=== PATIENT | male | born 1935 | race Caucasian/White ===

== ENCOUNTER 2017-05-28 15:28 | Inpatient (IN) | payer MEDICARE, BC ==
[~2017-05-28] VITALS: Ht 182.9 cm; Wt 91.2 kg
--- NOTE | ~2017-05-28 | CR63 ---
[facility] A Service of [facility] RADIOLOGY TEXT RESULTS PATIENT: TIEN SHELLEY LOCATION: [facility] - : 33 UNIT #: [id number] AGE: [address]: Real Dias MD SEX: M ORDER DR: [id number] [facility] [address]. [place], [place] [address] [id number] I MR#: [id number] Acc #: [id number] NAME: TIEN SHELLEY. : 1935 SEX: M STUDY DATE/TIME: 05/28/2017 17:32 UNIT: [address] ROOM: [facility] STUDY DESCRIPTION: CR Chest 2 View Attending Physician: Real Dias M.D. Ordering Physician: Cecy Rivas M.D. Primary Care Physician: Luis M Mederos M.D. MEDICAL IMAGING REPORT This report is preliminary unless electronic signature is present EXAM 2-view chest 05/28/2017 HISTORY 81-year-old male with shortness of air for 2 days. COMPARISON Chest 05/28/2017 FINDINGS 2 views of the chest again demonstrates right basilar atelectasis/infiltrate. Early pneumonia not excluded. No pneumothorax. Heart size and mediastinum are normal. Pulmonary vasculature normal. Small right pleural effusion is also not excluded. IMPRESSION Persistent right basilar atelectasis/infiltrate and questionable small right pleural effusion, unchanged from examination performed earlier the same date. Early pneumonia is not excluded. Dictated by... Michel Camacho M.D. THIS IS AN ELECTRONICALLY VERIFIED REPORT Michel Camacho M.D. at 05/29/2017 3:13 PM AXEL/gold TD: 05/29/2017 07:46 JOB #: [id number] MEDICAL IMAGING REPORT Page 1 of 1 COPY
--- NOTE | ~2017-05-28 | CT57 ---
[facility] A Service of [facility] RADIOLOGY TEXT RESULTS PATIENT: TIEN SHELLEY LOCATION: [facility] 338- : 33 UNIT #: [id number] AGE: [address]: Real Dias MD SEX: M ORDER DR: [id number] [facility] [address] [facility]. [place], [place] [address] [id number] I MR#: [id number] Acc #: [id number] NAME: TIEN SHELLEY. : 1935 SEX: M STUDY DATE/TIME: 05/29/2017 17:44 UNIT: [address] ROOM: [facility] STUDY DESCRIPTION: CT Chest Wo Cont Attending Physician: Real Dias M.D. Ordering Physician: Real Dias M.D. Primary Care Physician: Luis M Mederos M.D. MEDICAL IMAGING REPORT This report is preliminary unless electronic signature is present EXAM CT chest without contrast 05/29/2017 HISTORY 81-year-old male with shortness of air and cough beginning 05/28/2017. COMPARISON Chest x-ray 05/28/2017. TECHNIQUE Helical scan performed through the chest without IV contrast. Coronal and sagittal reformatted images. This CT examination was performed with one or more of the following radiation dose reduction techniques: automatic exposure control, adjustment of mA and/or kV according to patient size, and iterative reconstruction. FINDINGS Thoracic aorta normal in course and caliber. Heart size normal. No pericardial effusion. Coronary artery calcifications. Dense calcifications of the mitral annulus. Scattered atherosclerotic calcification throughout the thoracic aorta. There is a small right pleural effusion with dense right basilar infiltrate. The left lung is clear. No pneumothorax. Emphysema. Scanning through the upper abdomen demonstrates a TIPS stent. Cirrhotic morphology of the liver. Punctate left intrarenal calcifications. No acute bony abnormality. There is a left renal cyst. IMPRESSION 1. Small right pleural effusion with dense right basilar infiltrate. 2. Emphysema. 3. Cirrhotic morphology of the liver with TIPS. [facility] A Service of [facility] RADIOLOGY TEXT RESULTS PATIENT: TIEN SHELLEY LOCATION: [facility] 338-01 : 33 UNIT #: [id number] AGE: [address]: Real Dias MD SEX: M ORDER DR: Dictated by... Michel Camacho M.D. THIS IS AN ELECTRONICALLY VERIFIED REPORT Michel Camacho M.D. at 05/30/2017 4:08 PM AXEL/magda TD: 05/30/2017 10:01 JOB #: [id number] MEDICAL IMAGING REPORT Page 1 of 1 COPY
--- NOTE | ~2017-05-28 | ST ---
Unit #: [id number] #: [id number] Patient: TIEN SHELLEY [id number] [address] [address] [id number] I MR#: [id number] NAME: TIEN SHELLEY. : 1935 SEX: M STUDY DATE/TIME: UNIT: C3A PCU ROOM: [address] [place] [address] DESCRIPTION: Stress Test Attending Physician: Real Dias M.D. Primary Care Physician: Luis M Mederos M.D. CARDIOLOGY REPORT EXAM Lexiscan Cardiolite Stress Test DESCRIPTION Baseline EKG - normal sinus rhythm with ventricular rate 86 beats per minute, slow R wave progression, borderline left ventricular hypertrophy. Lexiscan is a four minute test with Lexiscan being injected within the first minute followed by Cardiolite. After Lexiscan injected, patient had frequent premature ventricular complexes during the stress portion and they resolved in recovery phase. EKG during the test did not show any acute ischemic changes, nonspecific changes. Maximum heart rate response was 107 beats per minute with a maximum blood pressure response of 177/81 mmHg. Patient had no complaints of chest pain, palpitations or dizziness. Had increased shortness of breath and fatigueness which resolved in recovery phase. Cardiolite was injected after Lexiscan within the first minute of the test. Radionuclide test pending. Please correlate with nuclear images. Dictated by... Tonie Mendenhall A.P.R.N. for Carolyne Johnson/ogld TD: 05/30/2017 12:55 JOB #: [id number] Unit #: [id number] #: [id number] Patient: TIEN SHELLEY CARDIOLOGY REPORT Page 1 of 1 X Tonie Mendenhall APRN CARDIOLOGY REPORT
--- NOTE | ~2017-05-28 | DS ---
Unit #: [id number] #: [id number] Patient: TIEN SHELLEY [id number] [facility] [address] [facility] [place] [facility]. [place], [place] [address] [id number] I MR#: [id number] NAME: TIEN SHELLEY. ROOM: 338 Age: 81 Sex: M Admission Date: 05/29/2017 : 1935 Discharge Date: 05/31/2017 Attending Physician: Real Dias M.D. Primary Care Physician: Luis M Mederos M.D. DISCHARGE SUMMARY REASON FOR ADMISSION Cough. HISTORY OF PRESENT ILLNESS/HOSPITAL COURSE The patient is a very pleasant 81-year-old male with longstanding history of cirrhosis, hepatic encephalopathy, portal vein thrombosis with prior history of TIPS procedure, who had actually presented to his primary care physician's office with a productive cough as well as dyspnea over the past several days. While evaluated, he was noted to have abnormal laboratory studies and so subsequently was transferred to [facility] for evaluation. Initial chest x-ray performed in the emergency room showed right lower lobe atelectasis versus infiltrate concerning for pneumonia. Subsequently, the patient was admitted for the same. He underwent routine laboratory studies in regard to pneumonia including blood cultures, which did not show any acute growth. He ultimately underwent a CT chest noncontrast secondary to ambiguity/ambivalent results within the chest x-ray, and therefore, CT noncontrast showed small right pleural effusion with dense right basilar infiltrate, emphysema, as well as cirrhotic morphology of the liver was noted. He was appropriately treated with IV antibiotics while here. Secondary to the location of right lower lobe pneumonia, a strong concern was made for possible aspiration. Speech Therapy Services were consulted. The patient was deemed appropriate and safe to swallow. Part of his routine laboratory studies did yield mildly elevated troponin 0.07, recheck was the same. This subsequently prompted a consultation to Cardiology Services. The patient ultimately underwent on May 30 a Lexiscan Cardiolite stress test, which did show suspicion for stress induced ischemia involving the inferior wall of the left ventricle. Dr. Hameed saw, evaluated, and discussed the results with the patient. Medical management was advised and follow up as an outpatient with her was advised for consideration for possible outpatient cardiac catheterization. The patient did express understanding as well as his . At this point in time, he will be given a prescription for p.o. antibiotics in regard to his pneumonia. He will require a repeat chest x-ray and/or CT noncontrast chest in approximately 4 to 6 weeks to ensure resolution. He will be maintained on his routine medications for aforementioned past medical history. He will also follow up with Unit #: [id number] #: [id number] Patient: KARSTENTIEN of Cardiology Services for discussion and/or review for possible outpatient cardiac catheterization. Appointment has been made for July 15 at 02:30 p.m. FINAL DISCHARGE DIAGNOSES 1. Right lower lobe pneumonia, community acquired. 2. Abnormal Lexiscan Cardiolite with inferior wall ischemia noted. 3. Dyspnea, likely multifactorial. 4. Cirrhosis. 5. Portal vein thrombosis history. 6. Prior history of TIPS procedure. 7. Hypertension. 8. Diabetes with insulin dependence. Hemoglobin A1c in this hospital admission is 7.5%. 9. Prior history of hepatic encephalopathy. Baseline pneumonia appears to be between 50-70. 10. Prior history of duodenal ulcer. 11. Hyperlipidemia history. 12. Prior history of peptic ulcer disease. DISCHARGE MEDICATIONS 1. Lactulose 60 mL p.o. q.8. 2. Tylenol 650 mg p.o. q.6 p.r.n. 3. Xifaxan 550 mg p.o. b.i.d. 4. Coumadin 2 mg p.o. daily. 5. Lopressor 25 mg p.o. b.i.d. 6. Lantus 20 units subcu at bedtime. 7. Lantus 25 units subcu q.a.m. 8. Protonix 40 mg p.o. daily. 9. Amaryl 2 mg p.o. b.i.d. with breakfast and dinner. 10. Augmentin 875 mg p.o. b.i.d. x10 days. 11. Lipitor 20 mg p.o. daily. DISCHARGE DISPOSITION Home. FOLLOWUP PCP in 7 to 10 days to coordinate discharge radiological evaluation and/or followup appointments. Dictated by... Carolyne Ocampo/wesley TD: 06/03/2017 06:11 JOB #: [id number] Unit #: [id number] #: [id number] Patient: TIEN SHELLEY E DISCHARGE SUMMARY Page 1 of 1 X Real Dias MD X DISCHARGE SUMMARY
--- NOTE | ~2017-05-28 | EKG ---
PATIENT: TIEN SHELLEY UNIT #: [id number] Ventricular Rate: 85 BPM Atrial Rate: 85 BPM P-R Interval: 190 ms QRS Duration: 86 ms Q-T Interval: 376 ms QTC Calculation(Bezet): 447 ms P Pettigrew: 43 degrees Calculated R Pettigrew: 20 degrees Calculated T Pettigrew: 80 degrees Diagnosis Line: Sinus rhythm with Premature atrial complexes Diagnosis Line: Otherwise normal ECG Diagnosis Line: When compared with ECG of 07-JUL-2014 11:06, Diagnosis Line: No significant change was found Diagnosis Line: Confirmed by MILKA DIAZ MD ([id number]) on 06/05/2017 Diagnosis Line: 7:29:30 AM INTERPRETING MD: JOE EVANS
--- NOTE | ~2017-05-28 | CO ---
Unit #: [id number] #: [id number] Patient: TIEN BERMEO [id number] [address] [place], [place] [address] [id number] I MR#: [id number] NAME: TIEN BERMEO. ROOM: 338 Age: 81 Sex: M Admission Date: 05/29/2017 : 1935 Attending Physician: Real Dias M.D. Primary Care Physician: Luis M Mederos M.D. Consultation Date: 05/30/2017 CONSULTATION REPORT REASON FOR CONSULTATION Mildly elevated troponin. HISTORY OF PRESENT ILLNESS This is an 81-year-old white male, who has known history of having portal vein thrombosis, he is on Coumadin; recurrent hepatic encephalopathy; and history of nonalcoholic cirrhosis; and also stage 3 to 4 chronic kidney disease; diabetes; hypertension; probable COPD; peptic ulcer disease in the past, who was sent to the emergency room by Dr. Mederos for worsening cough and some shortness of breath and he is not wheezy. On interview with the patient, he denies any chest pain; pain in his neck, bilateral jaws, shoulders, arms, or elbow. He denies any palpitations. No dizziness, presyncope, or syncope. He said the cough is persisting and worsening and he feels more short of breath with exertion. He denies any fever or chills. In the emergency room, the patient's blood pressure was 148/60, heart rate 98, respirations 20, temperature 98, O2 saturations 96% on room air. The patient's initial lactic acid was 3.0. The patient's chest x-ray showed a persistent right basilar atelectasis/infiltrate, and questionable small right pleural effusion, early pneumonia. EKG showed a normal sinus rhythm with occasional premature atrial complex. Nothing acute. His initial cardiac enzymes; CK total was 322, troponin 0.07, CK total is 440, percentage of MB is 2.8, troponin 0.07. BNP on admission was 783. WBC is 14.4 with a hemoglobin of 8, hematocrit 25.5, and platelets is 270. The patient was initiated on the sepsis protocol, because of his increased lactic acid. He was given IV Solu-Medrol along with started on IV antibiotics after cultures. He was started on IV fluids per protocol. Cardiology has been asked to see the patient, because of his mildly elevated troponin and BNP. PAST MEDICAL HISTORY 1. In 2006, had a cardiac cath by Dr. Weber, showed nonobstructive coronary artery disease, had less than 25% stenosis in the diagonal of the LAD. 2. In 2013, had a 24-hour Holter that showed frequent PVCs. No SVT or ventricular tachycardia or pauses. 3. On 05/29/2017, 2D echo shows LVEF of 55% to 60%, and was technically limited. Could not comment very well on the wall motion or valves. Moderately dilated right ventricle, questionable small pericardial effusion, mild tricuspid regurgitation. 4. History of portal vein thrombosis, on Coumadin. Recurrent hepatic Unit #: [id number] #: [id number] Patient: TIEN BERMEO. 5. Peptic ulcer disease, history of duodenal ulcer. Last EGD was 04/11/2015. 6. Diabetes mellitus, type 2. 7. Hyperlipidemia. 8. History of cirrhosis, nonalcoholic steatohepatitis. 9. Chronic kidney disease, stage 3 to 4. 10. Probable COPD. 11. Active nicotine abuse. PAST SURGICAL HISTORY 1. Appendectomy. 2. Right lower lobe lobectomy for pneumonia. 3. Bilateral cataract surgery. 4. Hepatic shunt in 02/2013. 5. Hepatic stent in 02/2014. HOME MEDICATIONS Xifaxan 550 mg p.o. b.i.d., Coumadin 2 mg p.o. daily, Protonix 40 mg p.o. daily, lactulose 60 mL p.o. t.i.d.; Amaryl 2 mg p.o. b.i.d. takes one and a half tablets b.i.d., a total of 3 mg; Lantus 25 units subcu every morning, Lantus 21 units at bedtime. ALLERGIES Honey bee stings and codeine. SOCIAL HISTORY The patient lives with his spouse. He continues to smoke couple of cigarettes a day he states. He denies any alcohol or illicit drug abuse. He ambulates with a cane. FAMILY HISTORY Noncontributory. REVIEW OF SYSTEMS See details in HPI. PHYSICAL EXAMINATION GENERAL: Mr. Bermeo is an 81-year-old white male, in no acute respiratory distress. He is awake, alert, answers most questions appropriately. VITAL SIGNS: Blood pressure is 176/70, respirations 18, heart rate is 88, temperature is 97.9, O2 saturations 97% on room air. NECK: Trachea midline. No thyromegaly or lymphadenopathy. Normal carotid upstrokes. No jugular venous distention. HEART: S1, S2. Regular rate and rhythm. Soft systolic murmur over left sternal border. LUNGS: Diminished with some scattered rhonchi especially in the right. ABDOMEN: Soft and nontender. EXTREMITIES: Pedal pulses are palpable. No pedal edema. DIAGNOSTIC DATA LABORATORY RESULTS: Glucose is 61, BUN 61, creatinine 2.8, eGFR is 28.3, sodium 141, potassium 4.8, chloride 107, CO2 of 22, calcium is 8.5. BNP 783. Lactic acid on admission was 3.0 and later 2.7. Cardiac enzymes; CK total is 322, MB is 8.5, percentage of MB is 2.6, troponin 0.07, CK total is 440, MB is 12.4, percentage of MB 2.8, troponin 0.08. Pro-time is 26.6 with INR of 2.4. WBCs today is up to 17.2, hemoglobin down to 7.5, Unit #: [id number] #: [id number] Patient: TIEN BERMEO hematocrit 24.4, and platelets is 301. On admission, the patient's hemoglobin was 8.0. IMAGING STUDIES: Chest x-ray shows persistent right basilar atelectasis/ infiltrate, and questionable small right pleural effusion, early pneumonia is not excluded. A CT of the chest without contrast shows small right pleural effusion with dense right bibasilar infiltrate, emphysema. Cirrhotic morphology of the liver shows the left lung is clear. CARDIOVASCULAR STUDIES: EKG shows normal sinus rhythm with ventricular rate of 86 beats per minute, slow R-wave progression, borderline left ventricular hypertrophy. IMPRESSION 1. Dyspnea, right lower lobe pneumonia. 2. Right pleural effusion. 3. Mildly elevated troponin 0.07, acute kidney injury. 4. Anemia. 5. History of cirrhosis, nonalcoholic steatohepatitis. 6. History of portal vein thrombosis, on anticoagulation with Coumadin, and recurrent hepatic encephalopathy. 7. A 2D echo on 05/29/2017 shows LVEF of 55% to 60%, but technically limited. Questionable small pericardial effusion. 8. In 2006, nonobstructive CAD. 9. Chronic obstructive pulmonary disease. 10. Active nicotine abuse. PLAN 1. Cardiology consult to assist with evaluation management. 2. The patient's troponin is 0.07, that is not indicative of acute coronary syndrome. However, with patient's multiple medical issues and since 2006 says he has had ischemic heart disease workup, we will order a stress test to further evaluate. The patient verbalizes understanding and agrees to proceed. 3. The patient's blood pressure is fluctuating and is high at times. We will add metoprolol 25 mg p.o. b.i.d. with parameters and make final recommendations on his medication for better blood pressure control. 4. On exam, there are no signs or symptoms of acute congestive heart failure, even though his BNP is high. 5. The patient is on sepsis protocol because on admission, his lactic acid was 3. 6. The patient is being treated with his pneumonia with IV antibiotics. Cultures are pending. 7. The patient will be scheduled for Lexiscan Cardiolite stress test to further evaluate for ischemic heart disease. 8. Encourage the patient to completely quit smoking. Smoking cessation information provided to the patient. 9. Questionable etiology of his anemia likely secondary to his chronic kidney disease. 10. CT of his chest indicates that there is no heart failure. Likely, the BNP in the dyspnea is from his pneumonia and exacerbation of COPD. 11. Further recommendations pending per Dr. Hameed. Thank you very much for allowing us to assist in the care. Unit #: [id number] #: [id number] Patient: TIEN BERMEO Dictated by... Francia Nicole/wesley TD: 05/31/2017 11:45 JOB #: [id number] CONSULTATION REPORT Page 1 of 1 X Tonie Mendenhall APRN X CONSULTATION REPORT
--- NOTE | ~2017-05-28 | HP ---
Unit #: [id number] #: [id number] Patient: TIEN SHELLEY [id number] [address] [place], [place] [address] [id number] MR#: [id number] NAME: TIEN SHELLEY. ROOM: Age: 81 Sex: M Admission Date: 05/28/2017 : 1935 Attending Physician: Cecy Rivas M.D. Primary Care Physician: Luis M Mederos M.D. HISTORY AND PHYSICAL CHIEF COMPLAINT Chief complains is a cough. HISTORY OF PRESENT ILLNESS The patient is an 81-year-old male with a longstanding history of a portal vein thrombosis, recurrent hepatic encephalopathy, presented to the emergency room with a cough. The patient was seen by the PCP earlier today and was concerning for the pneumonia and was sent to the emergency room for the pneumonia. The patient stated the patient continues to smoke one-fourth of a pack per day and started coughing up since last three to four days. The cough is productive in nature and is whitish to yellowish in color. The patient also complains of shortness of breath and denies any fevers or chills or nausea and vomiting. The patient is being admitted for the pneumonia with a chest x-ray showing the right lower lobe atelectasis versus infiltrate and concerning for the early pneumonia. PAST MEDICAL HISTORY Peptic ulcer disease, duodenal ulcer, history of type 2 diabetes mellitus, chronic , hyperlipidemia, hepatic encephalopathy, portal vein thrombosis. PAST SURGICAL HISTORY 1. Appendectomy. 2. Lung lobectomy. SOCIAL HISTORY Positive for smoking half a cigarette lasting three house and denies any alcohol or any illicit drug abuse, lives at home with his . FAMILY HISTORY Reviewed and none. HOME MEDICATIONS Patient is on Xifaxan, Coumadin, Protonix, Amaryl, Lantus. REVIEW OF SYMPTOMS Positive for cough, positive for the shortness of breath, negative for chest pain, negative for nausea and vomiting and all other systems have been reviewed and none. PHYSICAL EXAMINATION GENERAL APPEARANCE: On examination patient is lying on a bed not in acute distress. Unit #: [id number] #: [id number] Patient: TIEN SHELLEY VITAL SIGNS: Temperature 98, pulse 98, respiratory rate 20, blood pressure 142/60, sating 96% at room air. HEAD: Atraumatic/normocephalic. HEENT: Pupils equal, round and reacting to light and accommodation. Extraocular movements are intact. NECK: Supple. LUNGS: Decreased air entry at the bases. Positive for rhonchi. HEART: Regular rate and rhythm. ABDOMEN: Soft, positive bowel sounds. EXTREMITIES: No cyanosis. No clubbing. NEURO: Awake, alert, oriented. No gross focal motor deficit. SKIN: Warm and dry. DIAGNOSTIC STUDIES LAB DATA: WBCs 14.4, hemoglobin 8, hematocrit 25.5, platelet is 270, sodium 140, potassium 4, chloride 105, bicarb 23, glucose 139, BUN 39, creatinine 2.7, calcium is 8.7, lactic acid is 3, INR is 2.4. ASSESSMENT 1. Sepsis. 2. Right lower lobe pneumonia. 3. Diabetes mellitus. PLAN Plan to admit the patient to the observation with the telemetry. Continue with the sepsis protocol and continue with the IV antibiotics with the Rocephin and Zithromax and continue with the Coumadin for the portal vein thrombosis and continue the low dose sliding scale and Accu-Cheks a.c. and h.s. and check the sputum cultures and further recommendations will follow. Dictated by Carolyne Willson TD: 05/28/2017 21:26 JOB #: [id number] HISTORY AND PHYSICAL Page 1 of 1 X JT JACOB MD X HISTORY AND PHYSICAL
--- NOTE | ~2017-05-28 | TH ---
Unit #: [id number] #: [id number] Patient: TIEN SHELLEY [id number] [address] [address] [id number] I MR#: [id number] NAME: TIEN SHELLEY : 1935 SEX: M STUDY DATE/TIME: 05/30/2017 UNIT: C3A PCU ROOM: [facility] STUDY DESCRIPTION: Attending Physician: Real Dias M.D. Primary Care Physician: Luis M Mederos M.D. CARDIOLOGY REPORT EXAM Lexiscan Cardiolite stress test, nuclear portion. PROCEDURE Using technetium 99m labeled Cardiolite, rest and stress SPECT images were obtained. Multiple SPECT images were obtained in various views including horizontal and vertical long axis and short axis views of the left ventricle. Images were obtained by gated SPECT method. The patient was administered 9.49 mCi of Cardiolite at rest. The patient was administered 30.6 mCi of Cardiolite after Lexiscan infusion was completed. On the stress images, there is a nhdyx-[id number] sized area of moderate decreased isotope activity inferiorly. The rest images show a smaller area of mild decreased isotope activity inferiorly. Comparing rest and stress images there is suspicion for a [id number] sized area of stress-induced ischemia involving the inferior wall of the left ventricle. The left ventricular ejection fraction is calculated to be 63%. There is no focal wall motion abnormality seen. CONCLUSION 1. There is suspicion for stress-induced ischemia involving the inferior wall of the left ventricle. 2. The left ventricular ejection fraction is calculated to be 63%. 3. There is no focal wall motion abnormality seen. 4. Suspicion for ischemia involving the RCA territory. Clinical correlation is requested. Dictated by... Carolyne Johnson TD: 05/30/2017 16:54 JOB #: [id number] Unit #: [id number] #: [id number] Patient: TIEN SHELLEY CARDIOLOGY REPORT Page 1 of 1 X iCndi Hameed MD <ELECTRONICALLY SIGNED> 06/13/17 1524 CARDIOLOGY REPORT
[~2017-05-28 15:28] MED LIST: ACETAMINOPHEN PO; ALDACTONE25 MG PO; AMARYL PO; AMARYL2 MG PO; ASPIRIN PO; ASPIRIN81 M1 PO; ASPIRIN81 M2 PO; AVODART0.5 MG PO; B-121000 MC3 PO; CHRONULAC10 GM/151 PO; COUMADIN PO; COUMADIN2.5 MG PO; COUMADIN3 MG PO; COUMADIN4 MG PO; COUMADIN5 MG PO; CYANOCOBALAM1000 MCG PO; DEXILANT60 MG PO; DICLOFENAC; ENFOLAST TABLE1 EACH PO; FOLIC ACID1 MG PO; GLIMEPIRIDE2 MG PO; GLUCOPHAGE500 M1 PO; GLUCOPHAGE500 MG PO; KRISTALOSE20 G/PK1 PO; LACTULOSE10 G/15 M1; LACTULOSE10 G/15 M1 PO; LACTULOSE10 G/15 ML PO; LACTULOSE10 GM/15 M PO; LANTUS SOLOSTAR3 ML; LANTUS100 U/ML SUBQ; LIPITOR PO; LISINOPRIL PO; LISINOPRIL5 MG PO; LO-DOSE ASPIRIN81 M1 PO; METFORMIN HCL1000 M1 PO; METFORMIN HCL500 M1 PO; PHENERGAN25 M1 PO; PROTONIX PO; PROTONIX20 MG PO; PROTONIX40 MG/BLIS PO; VIT B-12 PO; VITAMIN D31000 UNIT PO; WARFARIN SODIUM2 M1 PO; WARFARIN SODIUM4 M1 PO; XIFAXAN550 MG PO
[2017-05-28 16:38] LABS: BASOPHIL# 0.1 X10e3 (0-0.3); BASOPHIL% 0.8 % (0-2.5); EOSINOPHIL% 0.3 % (0.0-7.0); HEMATOCRIT 25.5 % (38.0-50.0); LYMPHOCYTE# 1.2 X10e3 (1.0-3.5); LYMPHOCYTE% 8.5 % (17.0-45.0); MEAN CELL VOLUME 84.1 FL (83-96); MEAN CORPUSCULAR HEMOGLOBIN 26.3 PG (28-34); MEAN CORPUSCULAR HGB CONC 31.3 g/dL (30-36); MONOCYTE# 2.6 X10e3 (0-1.0); NEUTROPHIL# 10.4 X10e3 (1.5-7.1); NEUTROPHIL% 72.4 % (40-75); PLATELET COUNT 270 X10e3 (140-420); RED BLOOD COUNT 3.03 X10e (3.90-5.60); RED CELL DISTRIBUTION WIDTH 17.2 % (11.0-15.5); WHITE BLOOD COUNT 14.4 X10e3 (4.0-10.5)
[2017-05-28 16:44] LABS: DIFF IND NO
[2017-05-28 17:01] LABS: BUN/CREATININE RATIO 14.44; CALCIUM SERUM 8.7 mg/dL (8.4-10.2); CREATININE SERUM 2.7 mg/dL (0.6-1.4); GLOM FILT RATE Estimated 20.9 mL/min (>60)
[2017-05-28 18:27] LABS: INR 2.4; PROTHROMBIN TIME (PATIENT) 26.4 SECONDS (10.0-11.7)
[2017-05-29 03:03] LABS: HEMATOCRIT 22.9 % (38.0-50.0); HEMOGLOBIN 7.4 gm/dL (13.0-16.0); MEAN CELL VOLUME 84.1 FL (83-96); MEAN CORPUSCULAR HEMOGLOBIN 27.1 PG (28-34); MEAN CORPUSCULAR HGB CONC 32.3 g/dL (30-36); MEAN PLATELET VOLUME 10.3 FL (6.5-11.5); RED BLOOD COUNT 2.72 X10e (3.90-5.60); WHITE BLOOD COUNT 8.9 X10e3 (4.0-10.5)
[2017-05-29 03:21] LABS: BUN/CREATININE RATIO 16.66; CALCIUM SERUM 8.1 mg/dL (8.4-10.2); CREATININE SERUM 2.4 mg/dL (0.6-1.4); GLOM FILT RATE Estimated 24.1 mL/min (>60); POTASSIUM 4.8 mmol/L (3.5-5.1)
[2017-05-29 10:27] LABS: INR 2.3; PROTHROMBIN TIME (PATIENT) 24.8 SECONDS (10.0-11.7)
[2017-05-29 11:30] LABS: %MB 2.6 % (0.0-4.0); MB 8.5 ng/ml
[2017-05-29 17:32] LABS: %MB 2.8 % (0.0-4.0); MB 12.4 ng/ml
[2017-05-30 08:04] LABS: HEMATOCRIT 24.4 % (38.0-50.0); HEMOGLOBIN 7.5 gm/dL (13.0-16.0); MEAN CELL VOLUME 84.3 FL (83-96); MEAN CORPUSCULAR HGB CONC 30.9 g/dL (30-36); MEAN PLATELET VOLUME 10.2 FL (6.5-11.5); RED BLOOD COUNT 2.89 X10e (3.90-5.60); RED CELL DISTRIBUTION WIDTH 17.3 % (11.0-15.5)
[2017-05-30 08:05] LABS: WHITE BLOOD COUNT 17.2 X10e3 (4.0-10.5)
[2017-05-30 08:08] LABS: INR 2.4; PROTHROMBIN TIME (PATIENT) 26.6 SECONDS (10.0-11.7)
[2017-05-30 08:32] LABS: BUN/CREATININE RATIO 24.28; CALCIUM SERUM 8.5 mg/dL (8.4-10.2); CREATININE SERUM 2.1 mg/dL (0.6-1.4); GLOM FILT RATE Estimated 28.3 mL/min (>60); POTASSIUM 4.8 mmol/L (3.5-5.1)
[2017-05-31 06:28] LABS: INR 2.8; PROTHROMBIN TIME (PATIENT) 30.3 SECONDS (10.0-11.7)
[2017-05-31 06:31] LABS: HEMATOCRIT 25.7 % (38.0-50.0); HEMOGLOBIN 7.9 gm/dL (13.0-16.0); MEAN CELL VOLUME 83.9 FL (83-96); MEAN CORPUSCULAR HEMOGLOBIN 25.9 PG (28-34); MEAN CORPUSCULAR HGB CONC 30.8 g/dL (30-36); MEAN PLATELET VOLUME 10.4 FL (6.5-11.5); RED BLOOD COUNT 3.07 X10e (3.90-5.60); RED CELL DISTRIBUTION WIDTH 16.9 % (11.0-15.5); WHITE BLOOD COUNT 16.4 X10e3 (4.0-10.5)
[2017-05-31 07:05] LABS: ALBUMIN SERUM 3.5 g/dL (3.5-5.0); BILIRUBIN,TOTAL 0.4 mg/dL (0.2-2.0); BUN/CREATININE RATIO 23.91; CALCIUM SERUM 8.5 mg/dL (8.4-10.2); CREATININE SERUM 2.3 mg/dL (0.6-1.4); GLOM FILT RATE Estimated 25.3 mL/min (>60); POTASSIUM 4.5 mmol/L (3.5-5.1); PROTEIN TOTAL SERUM 6.9 g/dL (6.0-8.3)
[2017-05-31] MEDS ORDERED: ACETAMINOPHEN650 M1 PO (11:40)
[2017-05-31] MEDS ORDERED: METOPROLOL TAR25 MG PO (11:42)
[2017-05-31] MEDS ORDERED: LIPITOR20 MG PO (11:44)
[2017-05-31] MEDS ORDERED: AUGMENTIN PO ×2 (11:45→11:47)
[2017-06-14] MEDS ORDERED: MR (13:05)
== END 2017-05-31 15:34 | disposition home or self-care (01) | DRG 871 ==
LOC: CED 15:28 → CEDOF 19:00 → CED 21:26 → CEDOF 21:26 → C3A PCU 21:46 → CEDOF 21:46 → C3A PCU 21:46 → CEDOF 05-29 13:04 → C3A PCU 05-29 13:04
PROVIDERS: Emergency Medicine; Family Medicine; Internal Medicine
PROC: B246ZZZ Ultrasonography of Right and Left Heart (ICD-10-PCS; principal; 2017-05-29)
DX: A41.9 Sepsis, unspecified organism (principal); J18.9 Pneumonia, unspecified organism; J90 Pleural effusion, not elsewhere classified; N18.4 Chronic kidney disease, stage 4 (severe); N17.9 Acute kidney failure, unspecified; E11.9 Type 2 diabetes mellitus without complications; K74.60 Unspecified cirrhosis of liver; K75.81 Nonalcoholic steatohepatitis (NASH); I12.9 Hypertensive chronic kidney disease with stage 1 through stage 4 chronic kidney disease, or unspecified chronic kidney disease; Z79.4 Long term (current) use of insulin; Z87.11 Personal history of peptic ulcer disease; Z86.718 Personal history of other venous thrombosis and embolism; E78.5 Hyperlipidemia, unspecified; F17.210 Nicotine dependence, cigarettes, uncomplicated; Z90.49 Acquired absence of other specified parts of digestive tract; Z98.49 Cataract extraction status, unspecified eye; Z88.5 Allergy status to narcotic agent; Z91.030 Bee allergy status
CPT/HCPCS: 36415; 71020; 71250; 78452; 80048; 80053; 82140; 82308; 82550; 82553; 82947; 83036; 83605; 83880; 84484; 85025; 85027; 85610; 87040; 92610; 93005; 93017; 94640; 94760; 99285; A9500; C8929; G8996-GN; G8997-GN; G8998-GN; J0456; J0696; J1815; J2543; J2785; J2930; Q9957